=== PATIENT | female | born 1970 | race Caucasian/White ===

== ENCOUNTER 2017-01-08 15:27 | Emergency (ER) | payer MEDICAID ==
--- NOTE | 2017-01-08 16:05 | ERNOTE ---
Upper Extremity HPI - Narrative Date of Service: 01/08/17 - General Extremities Pain Location: wrist: bilateral Time Seen by Provider: 01/08/17 15:55 Source: patient Exam Limitations: no limitations - Immun/Allergies/Home Medications Immunizations: IMMUNIZATION HX Immunizations Up to Date Yes History of Influenza Vaccine No Hx Pneumococcal Vaccination No Allergies/Adverse Reactions: Allergies Allergy/AdvReac Type Severity Reaction Status Date / Time No Known Allergies Allergy Verified 01/08/17 15:44 Home Medications: HOME MEDICATIONS Medroxyprogesterone Acetate [Provera] 10 mg PO DAILY #14 tab 03/18/16 [Last Taken Unknown] oxyCODONE HCL/ACETAMINOPHEN [Percocet 5-325 mg Tablet] 1 each PO Q4H PRN #20 tablet 03/24/16 [Last Taken Unknown] predniSONE [Prednisone] See Taper PO DAILY #18 tablet 01/08/17 [Last Taken Unknown] - History of Present Illness Narrative: 46-year-old female presents to the emergency room for bilateral wrist pain. 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 Patient states that her pain gets very bad at night and it wakes her up. Patient states she has taken Tylenol and ibuprofen in the Hand pain has not improved. Patient states that she has been told in the past by other providers she may have carpel tunnel. Date (Duration): 01/08/17 Occurred: last week Location of Incident: work Severity: mild, moderate Method of Injury: Reports: no apparent injury Modifying Factors - (Improves): Reports: rest Modifying Factors - (Worsens): Reports: movement Associated Symptoms: Reports: tingling, weakness Other Injuries: Reports: none Review of Systems - Review of Systems Constitutional: Present: no symptoms reported EYE: Present: no symptoms reported ENT: Present: no symptoms reported Respiratory: Present: no symptoms reported Cardiology: Present: no symptoms reported Gastrointestinal/Abdominal: Present: no symptoms reported Genitourinary: Present: no symptoms reported Musculoskeletal: Present: See HPI, muscle stiffness, joint pain Skin: Present: no symptoms reported Neurological: Present: See HPI, tingling Endocrine: Present: no symptoms reported Hematologic/Lymphatic: Present: no symptoms reported Psych: Present: no symptoms reported All Other Systems: All systems neg except as marked - Patient's Past Medical History Patient History - Medical: Other Patient History - Cardiac/Respiratory: No pertinent hx Patient History - Cancer: No Hx of Cancer Patient History - Surgical Procedures: Tubal Ligation, Other Patient History - Other: None - Family History Father Family History - Medical: No pertinent hx Family History - Cardiac/Respiratory: CVA/Stroke, Hypertension Mother Family History - Medical: No pertinent hx, Hypothyroidism Family History - Cardiac/Respiratory: COPD Sister Family History - Medical: Diabetes Type 2, Other Family History - Cardiac/Respiratory: No pertinent hx - Social History Living Situations: home Abuse History: No History of abuse Psych History: No pertinent hx Alcohol Use: occasionally Drug Use: other - Immunizations Immunizations Up to Date: Yes Hx Pneumococcal Vaccination: No History of Influenza Vaccine: No Physical Exam - Physical Exam Narrative: POSITIVE PHALENS TEST AND TINELS SIGN General Appearance: Present: wd/wn, alert, no apparent distress Head Exam: Present: normal inspection, no evidence of injury Eye Exam: Normal inspection: bilateral, PERRL: bilateral, EOMI: bilateral Ears, Nose, Throat: Present: normal ENT inspection, normal pharynx Neck: Present: normal inspection, nontender, supple, full range of motion Respiratory: Present: no respiratory distress, normal breath sounds, no accessory muscle use, chest nontender, lungs clear Cardiovascular/Chest: Present: regular rate, rhythm, no murmur, normal peripheral pulses Peripheral Pulses: N=norm/S=strong/W=weak/B=bound/A=absent: Radial (R): Normal, Radial (L): Normal Gastrointestinal/Abdominal: Present: normal bowel sounds, nontender, nondistended, soft, no organomegaly Back Exam: Present: normal inspection, normal range of motion, no CVA tenderness , no vertebral tenderness Extremity Exam: Present: normal except - - pain with wrist flexion or extension that is sustained. Neurological Exam: Present: alert, oriented, normal mood/affect, no motor/ sensory deficits, breakfast attendant II-XII nml as tested Skin Exam: Present: normal color, warm/dry Lymphatic Exam: Present: no adenopathy ED Progress - Vital Signs Patient's Vital Signs:: I have reviewed the patient's vital signs. Vital Signs: Vital Signs 01/08/17 15:41 Temperature 36.6 C Pulse Rate 72 Respiratory 16 Rate Blood Pressure 162/79 O2 Sat by Pulse 97 Oximetry - Progress/Reassessment Chief Complaint: Hand Injury/Pain Progress:: Improved Plan - Plan Plan: Patient was started on a steroid taper and given bilateral cockup wrist splints that she will wear for the next 2 weeks. Patient will follow up with her primary care provider regarding this issue. Patient instructed she may take [id number] pain medications as needed for pain. Departure Clinical Impression: Carpal tunnel syndrome on both sides - Departure Disposition: Home Follow Up Needed Condition: Good Instructions: Carpal Tunnel Syndrome, [id number] Additional Instructions: Continue any previous home medications prescribed. Wear wrist splints for the next 2 weeks and may take it off to shower. Please make a follow-up appointment with Dr. Yang. You have been given his number. Referrals: Reilly Brown MD [Staff Physician] - Prescriptions: predniSONE [Prednisone] See Taper PO DAILY #18 tablet
[2017-01-08 16:59] VITALS: BP 149/79
== END 2017-01-08 17:02 | disposition home or self-care (01) ==
LOC: ER 15:27
DX: G56.03 Carpal tunnel syndrome, bilateral upper limbs (principal)